=== PATIENT | male | born 1955 | race Caucasian/White ===

== ENCOUNTER 2020-01-04 17:02 | Emergency (ER) | payer OTHER, SELFPAY ==
[2020-01-04] VITALS (17 sets, daily range): BP systolic 123–140; BP diastolic 84–101; PULSE 57–84; RESP 13–20; TEMP 36.8; O2SAT 93–100
--- NOTE | ~2020-01-04 | XR_ITS ---
EXAMINATION: XR chest 2V EXAM DATE: 01/04/2020 17:33 INDICATION: Dyspnea, right and left-sided chest pain started yesterday. TECHNIQUE: Frontal and lateral projections of the chest obtained and reviewed. Comparison is made to prior examination from 11/21/2010. FINDINGS: The lungs are clear. There are no pleural effusions. The cardiomediastinal silhouette is within normal limits. There is no pneumothorax suspected. There is tortuosity of the aorta. There a re mild bony degenerative changes. IMPRESSION: Unremarkable chest x-ray exam. Reviewed, dictated and finalized at location A.
--- NOTE | 2020-01-04 17:17 | ECG_ITS ---
Measurements Intervals [place] Rate: 75 P: 46 TX: 155 QRS: 77 QRSD: 96 T: 45 QT: 373 QTc: 418 Interpretive Statements SINUS RHYTHM NORMAL ECG Electronically Signed On 01-05-2020 7:39:19 CDT by Nick Prado D.O.
[2020-01-04 17:36] LABS: Basophils Absolute Auto 0.2 K/mm3 (0.0-0.1); Eosinophils Absolute Auto 1.6 K/mm3 (0-0.3); Eosinophils Percent Auto 20.9 % (0-4.4); Hematocrit 40.8 % (42.0-52.0); Immature Granulocyte Absolute 0.02 K/mm3 (0.00-0.031); Immature Granulocyte Percent A 0.3 % (0-0.5); Lymphocytes Absolute Auto 2.23 K/mm3 (0.9-3.2); Lymphocytes Percent Auto 30.1 % (18.3-44.2); Mean Corpuscular HGB Conc 34.3 g/dl (32-36); Mean Corpuscular Hemoglobin 32.6 pg (26-34); Mean Corpuscular Volume 95.1 fl (80-100); Mean Platelet Volume 8.7 fl (7.4-10.4); Monocytes Absolute Auto 0.8 K/mm3 (0.1-0.6); Monocytes Percent Auto 11.1 % (2.6-8.5); Neutrophils Absolute Auto 2.7 K/mm3 (1.3-6.7); Neutrophils Percent Auto 35.6 % (45.5-73.1); Platelet Count Result 293 k/mm3 (150-375); Red Blood Count 4.29 M/mm3 (4.6-6.20); Red Cell Distribution Width 12.8 % (11.5-14.5); White Blood Count 7.4 K/mm3 (4.5-10.0)
[2020-01-04] MEDS: ASPIRIN 81 MG CHEWABLE TABLET 324 MG PO (17:41)
[2020-01-04 17:50] LABS: Blood Urea Nitrogen 11 mg/dL (9-20); Calcium 8.7 mg/dL (8.4-10.2); Carbon Dioxide 27 mmol/L (22-30); Chloride 106 mmol/L (98-107); Estimated CRCL calculation 89 ml/min; Estimated Glomerular Filt Rate > 60; Glucose 88 mg/dL (75-110); Sodium 138 mmol/L (137-145)
[2020-01-04 17:52] LABS: Partial Thromboplastin Time 26.9 SECONDS (22.3-36.8); Prothrombin Time 12.5 Seconds (11.1-14.7)
[2020-01-04 17:55] LABS: D Dimer 0.27 ug/mL (<0.48)
[2020-01-04 18:01] LABS: Troponin I < 0.012 ng/mL (0.000-0.034)
--- NOTE | 2020-01-04 19:28 | PC.NURSE ---
report received from MARINO Dupree. pt resting on stretcher at this time. denies any needs/concerns, hooked up to monitor, call light in reach, will continue to monitor pt for baseline status changes.
--- NOTE | 2020-01-04 20:40 | ED.CHESTPAIN ---
HPI - Chest Pain General Chief Complaint: Chest Pain Stated Complaint: CHEST PAIN SINCE APRIL 2019 Time Seen by Provider: 01/04/20 17:18 Source: patient Mode of arrival: ambulatory Limitations: no limitations History of Present Illness HPI narrative: Patient presents the express care for evaluation of chest pain that began yesterday. Patient states that it has waxed and waned. Patient states that he notices it the most when he takes a deep breath in and is a burning sensation that moves his upper right area of the chest. Patient denies any prior MIs or PEs. Patient denies shortness of breath, nausea, vomiting, diarrhea, dizziness, radiation of pain into his left arm or jaw. Patient denies history of smoking, recreational drug use, family history of PEs. Related Data Home Medications Medication Instructions Recorded Confirmed anastrozole 1 mg PO DAILY 01/04/20 finasteride 5 mg PO DAILY 01/04/20 levothyroxine 01/04/20 liothyronine 01/04/20 losartan 50 mg PO DAILY 01/04/20 progesterone 01/04/20 Allergies Allergy/AdvReac Type Severity Reaction Status Date / Time No Known Allergies Allergy Verified 01/22/11 17:34 Review of Systems Review of Systems: Narrative: CONSTITUTIONAL: Denies fever, chills, or sweats. EYES: Denies visual changes, redness, or discharge. ENT: Denies rhinorrhea, congestion, sore throat, or otalgia. CARDIOVASCULAR: Reports chest discomfort with inspiration, denies palpitations, or edema. RESPIRATORY: Denies cough or dyspnea. GASTROINTESTINAL: Denies abdominal pain, nausea, vomiting, or diarrhea. GENITOURINARY: Denies dysuria or hematuria. SKIN: Denies rash or itching. MUSCULOSKELETAL: Denies back pain, joint pain, or myalgia. NEUROLOGIC: Denies headache, visual disturbance, numbness, dizziness, or weakness. Exam Narrative: Exam Narrative: GENERAL: Well-appearing, well-nourished, and in no acute distress. Patient sitting in room comfortably reading a book without any signs of discomfort. HEAD: Normocephalic, atraumatic. EYES: PERRLA and EOMI. ENT: Nares clear, no rhinorrhea or epistaxis. Mucous membranes moist. Oropharynx without tonsillar hypertrophy exudate or other lesions. Bilateral TMs pearly nathan nonbulging NECK: Supple. No adenopathy or masses. CHEST: Not tender to palpation. clear to auscultation. No respiratory distress. No wheezes rales or rhonchi. Patient speaking in complete sentences without shallow respirations or tachypnea HEART: Regular rate and rhythm. ABDOMEN: Soft, nontender, nondistended, normal active bowel sounds. EXTREMITIES: Normal range of motion. No edema. SKIN: Warm, dry, no rash. NEURO: No focal deficits. Alert and oriented x3. PSYCH: Normal mood and affect. Course Vital Signs Vital signs: Vital Signs Temperature 98.3 F 01/04/20 17:17 Pulse Rate 82 01/04/20 17:17 Respiratory Rate 14 01/04/20 17:17 Blood Pressure 129/84 01/04/20 17:17 Pulse Oximetry 100 01/04/20 17:17 Temperature 98.3 F 01/04/20 17:17 Pulse Rate 66 01/04/20 21:15 Respiratory Rate 20 01/04/20 21:15 Blood Pressure 127/88 01/04/20 21:15 Pulse Oximetry 98 01/04/20 21:15 MDM - Chest Pain MDM Narrative Medical decision making narrative: Patient reported improvement in discomfort even prior to the administration of aspirin. Patient states that after asthma he still notices improvement. Patient states he still notices slight burning sensation with inspiration. Patient's d-dimer was negative. Patient does not have tachycardia or tachypnea. If patient still the troponin is negative patient will be discharged home with follow-up with primary care for further evaluation. Patient will be treated with for pleurisy. Patient states that he had an issue with recurrent NSAID so he has been instructed to avoid NSAID use. We will give him Medrol Dosepak for pleurisy treatment. Patient second troponin is negative and he states he is ready to be discharged home
[2020-01-04] MEDS: methylPREDNISolone SOD SUCC 40 MG VIAL 80 MG IV PUSH (20:53)
[2020-01-04 20:57] LABS: Troponin I < 0.012 ng/mL (0.000-0.034)
== END 2020-01-04 21:15 | disposition home or self-care (01) ==
PROVIDERS: Emergency Medicine; Physician Assistant; Emergency Provider Emergency Medicine
DX: R09.1 Pleurisy (principal); R07.89 Other chest pain
CPT/HCPCS: 36415; 71046; 80048; 84484; 85025; 85380; 85610; 85730; 93005; 96374; 99284; A9270; J2920